=== PATIENT | female | born 1965 | race Caucasian/White ===

== ENCOUNTER 2017-01-24 15:55 | Emergency (ER) | payer MEDICAID, OTHER ==
[~2017-01-24] VITALS: Ht 170.2 cm; Wt 61.0 kg
[~2017-01-24 15:55] MED LIST: CLON0.5T PO; CYCL1TAB29 PO; Cholesterol med PO; GABA300C5 PO; HYDR-3583 PO; LACO50 PO; LEVE250 PO; MORP1CAP80 PO; PRED10 PO; SYMB80AE INH; TOPI1TAB97 PO; ZOLO100T PO
[2017-01-24 15:58] VITALS: BP 110/73; PULSE 101; RESP 17; TEMP 99.3; O2SAT 96
[2017-01-24] MEDS ORDERED: CIPR-9 PO (16:51)
[2017-01-24] MEDS ORDERED: ADVA250A INH (16:51)
[2017-01-24] MEDS ORDERED: PRAV80TA2 PO (16:51)
[2017-01-24] MEDS ORDERED: DULC100C PO (16:51)
[2017-01-24] MEDS ORDERED: VIMP150T PO (16:51)
[2017-01-24] MEDS ORDERED: TIZA4TAB PO (16:51)
[2017-01-24] MEDS ORDERED: K-TA10TA PO (16:51)
[2017-01-24] MEDS ORDERED: HYDR200T3 PO (16:51)
[2017-01-24] MEDS ORDERED: VOLT1GEL4 TOPICAL (16:51)
[2017-01-24] MEDS ORDERED: HYDROXINE PO (16:51)
[2017-01-24] MEDS ORDERED: ALBUAER3 INH (16:51)
[2017-01-24] MEDS ORDERED: DICL75TA PO (16:51)
[2017-01-24] MEDS ORDERED: PHEN0.4T PO (16:51)
[2017-01-24] MEDS ORDERED: NITR0.4S SL (16:51)
[2017-01-24] MEDS ORDERED: LISI10TA3 PO (16:51)
[2017-01-24] MEDS ORDERED: FLUO40CA PO (16:51)
[2017-01-24] MEDS ORDERED: PROM25TA10 PO (16:51)
[2017-01-24] MEDS ORDERED: OMEP40CA2 PO (16:51)
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
[2017-01-24] MEDS ORDERED: CYCL1TAB29 PO (18:41)
[2017-01-24] MEDS ORDERED: KETOROLAC TROMETHAMINE 60 MG/2 ML (IM) VIAL IM ONE (18:45)
[2017-01-25] MEDS ORDERED: HYDR50TA94 PO (11:26)
== END 2017-01-24 19:00 | disposition home or self-care (01) ==
LOC: PHEFT 15:55
DX: S29.012A Strain of muscle and tendon of back wall of thorax, initial encounter (principal); M54.2 Cervicalgia; I10 Essential (primary) hypertension; E78.00 Pure hypercholesterolemia, unspecified; V49.09XA Driver injured in collision with other motor vehicles in nontraffic accident, initial encounter; Y92.481 Parking lot as the place of occurrence of the external cause; Z72.0 Tobacco use; Z87.39 Personal history of other diseases of the musculoskeletal system and connective tissue; Z86.2 Personal history of diseases of the blood and blood-forming organs and certain disorders involving the immune mechanism; Z86.59 Personal history of other mental and behavioral disorders; Z86.79 Personal history of other diseases of the circulatory system; Z87.09 Personal history of other diseases of the respiratory system; Z87.19 Personal history of other diseases of the digestive system; Z86.69 Personal history of other diseases of the nervous system and sense organs
CPT/HCPCS: 72072; 72125; 96372; 99285; J1885